=== PATIENT | male | born 1960 | race Caucasian/White ===

== ENCOUNTER 2017-03-28 23:49 | Inpatient (IN) | payer OTHER, MEDICAID ==
[~2017-03-28] VITALS: Ht 165.1 cm; Wt 102.0 kg
[2017-03-29] VITALS (7 sets, daily range): BP systolic 70–115; BP diastolic 37–73
[2017-03-29 00:45] LABS: ALBUMIN 1.5 g/dL (3.4-5.0); BILIRUBIN TOTAL 0.7 mg/dL (0.20-1.00); CALCIUM 7.9 mg/dL (8.5-10.1); CARBON DIOXIDE 13.1 mmol/L (21-32); POTASSIUM SERUM 4.3 mmol/L (3.5-5.1); TOTAL PROTEIN, SERUM 7.1 g/dL (6.4-8.2)
[2017-03-29 00:47] LABS: CREATININE SERUM 4.2 mg/dL (0.7-1.3)
[2017-03-29 00:48] LABS: PLATELET COUNT 121 x10^3mcL (130-400); RED CELL DISTRIBUTION WIDTH 15.7 % (11.5-14.5)
[2017-03-29 01:44] LABS: BAND NEUTROPHIL 19 % (0-10); METAMYELOCTE 8 % (0-2); MONOCYTE 8 % (0-7); PLATELET MORPHOLOGY LARGE PLATELET SEEN; SEGMENTED NEUTROPHILS 54 % (37-75); rbc morphology (normal/abnorm) ABNORMAL (NORMAL); tear drop cell (dacryocyte) 1+
[2017-03-29 01:54] LABS: UA SPECIFIC GRAVITY 1.025 (1.005-1.035); microscopic required? YES; urine erythrocyte 3+ (NEGATIVE)
[2017-03-29] MEDS ORDERED: ASPIR 8181 MG PO (07:34)
[2017-03-29] MEDS ORDERED: ALBUTEROL0.63 MG/3 IH (07:34)
[2017-03-29] MEDS ORDERED: LEVEMIR100 U/M1 SC (07:35)
[2017-03-29] MEDS ORDERED: LAC PO (07:36)
[2017-03-29] MEDS ORDERED: MULTI-VITAMINS1 TAB PO (07:36)
[2017-03-29] MEDS ORDERED: LACTULOSE10 GM/152 PO (07:36)
[2017-03-29] MEDS ORDERED: NEOMYCIN SULFA500 MG PO (07:37)
[2017-03-29] MEDS ORDERED: SENOKOT8.6 MG PO (07:37)
[2017-03-29] MEDS ORDERED: PROPRANOLOL HCL20 MG PO (07:38)
[2017-03-29 12:53] LABS: CALCIUM 7.7 mg/dL (8.5-10.1); CARBON DIOXIDE 12.5 mmol/L (21-32); POTASSIUM SERUM 4.1 mmol/L (3.5-5.1)
[2017-03-29 12:58] LABS: CREATININE SERUM 4.2 mg/dL (0.7-1.3)
[2017-03-29 19:53] LABS: CALCIUM 7.5 mg/dL (8.5-10.1); CARBON DIOXIDE 11.5 mmol/L (21-32); CREATININE SERUM 3.9 mg/dL (0.7-1.3); POTASSIUM SERUM 3.6 mmol/L (3.5-5.1)
[2017-03-30 03:42] VITALS: BP 83/54
[2017-03-30 06:06] LABS: PLATELET COUNT 57 x10^3mcL (130-400); RED CELL DISTRIBUTION WIDTH 15.9 % (11.5-14.5)
[2017-03-30 06:09] LABS: IRON 98 ug/dL (65-170)
[2017-03-30 06:11] LABS: TOTAL IRON BINDING CAPACITY 84 ug/dL (250-450)
[2017-03-30 06:19] LABS: ALBUMIN 1.1 g/dL (3.4-5.0); BILIRUBIN TOTAL 1.26 mg/dL (0.20-1.00); CALCIUM 7.6 mg/dL (8.5-10.1); CARBON DIOXIDE 12.9 mmol/L (21-32); CREATININE SERUM 3.6 mg/dL (0.7-1.3); PHOSPHOROUS 4.8 mg/dL (2.5-4.9); POTASSIUM SERUM 3.5 mmol/L (3.5-5.1); TOTAL PROTEIN, SERUM 5.3 g/dL (6.4-8.2)
[2017-03-30 06:21] LABS: BAND NEUTROPHIL 10 % (0-10); SEGMENTED NEUTROPHILS 75 % (37-75)
[2017-03-30 06:22] LABS: MONOCYTE 10 % (0-7); rbc morphology (normal/abnorm) ABNORMAL (NORMAL)
[2017-03-30 06:23] LABS: PLATELET MORPHOLOGY PLATELETS DECREASED
[2017-03-30 07:30] VITALS: BP 91/55
[2017-03-30 11:45] VITALS: BP 110/64
[2017-03-30 13:46] VITALS: Ht 165.1 cm; Wt 102.0 kg
[2017-03-30 16:00] VITALS: BP 107/62
[2017-03-30 19:50] VITALS: BP 106/53
[2017-03-30 23:20] VITALS: BP 118/63
[2017-03-31 03:26] VITALS: BP 97/53
[2017-03-31 05:02] LABS: PLATELET COUNT 58 x10^3mcL (130-400)
[2017-03-31 05:18] LABS: BILIRUBIN TOTAL 0.86 mg/dL (0.20-1.00); CALCIUM 7.8 mg/dL (8.5-10.1); CARBON DIOXIDE 13.6 mmol/L (21-32); CREATININE SERUM 3.4 mg/dL (0.7-1.3)
[2017-03-31 05:20] LABS: ALBUMIN 1.7 g/dL (3.4-5.0); TOTAL PROTEIN, SERUM 5.8 g/dL (6.4-8.2)
[2017-03-31 05:21] LABS: POTASSIUM SERUM 2.7 mmol/L (3.5-5.1)
[2017-03-31 05:29] LABS: BAND NEUTROPHIL 8 % (0-10); METAMYELOCTE 5 % (0-2); MONOCYTE 4 % (0-7); MYELOCYTE 1 % (0-2); SEGMENTED NEUTROPHILS 77 % (37-75); rbc morphology (normal/abnorm) ABNORMAL (NORMAL); tear drop cell (dacryocyte) 1+
[2017-03-31 05:30] LABS: burr cell (echinocyte) 1+
[2017-03-31 08:00] VITALS: BP 99/53
[2017-03-31 11:30] VITALS: BP 99/55
[2017-03-31 13:23] LABS: microalbumin:creatinine ratio 543.5 (0.0-30.0)
[2017-03-31 16:00] VITALS: BP 150/72
[2017-03-31 20:22] VITALS: BP 128/68
[2017-04-01 06:13] VITALS: BP 91/44
[2017-04-01 06:22] VITALS: BP 99/49
[2017-04-01 07:01] LABS: RED CELL DISTRIBUTION WIDTH 17.1 % (11.5-14.5)
[2017-04-01 07:03] LABS: CALCIUM 7.4 mg/dL (8.5-10.1); CARBON DIOXIDE 14.3 mmol/L (21-32); CREATININE SERUM 3.1 mg/dL (0.7-1.3); MAGNESIUM 1.5 mg/dL (1.8-2.4); PLATELET COUNT 39 x10^3mcL (130-400); POTASSIUM SERUM 3.3 mmol/L (3.5-5.1)
[2017-04-01 10:11] LABS: BAND NEUTROPHIL 9 % (0-10); BASOPHIL 0 % (0-2); METAMYELOCTE 4 % (0-2); MONOCYTE 6 % (0-7); MYELOCYTE 1 % (0-2); SEGMENTED NEUTROPHILS 72 % (37-75)
[2017-04-01 10:12] LABS: rbc morphology (normal/abnorm) ABNORMAL (NORMAL)
[2017-04-01 10:14] LABS: burr cell (echinocyte) 1+; tear drop cell (dacryocyte) 1+
[2017-04-01 10:19] VITALS: BP 102/47
[2017-04-01 14:31] VITALS: BP 110/50
[2017-04-01 17:48] VITALS: BP 118/56
[2017-04-01 20:54] VITALS: BP 119/48
[2017-04-02 05:30] VITALS: BP 119/59
[2017-04-02 06:11] LABS: BASOPHIL % 0.2 % (0-2)
[2017-04-02 06:24] LABS: CALCIUM 7.5 mg/dL (8.5-10.1); CARBON DIOXIDE 12.9 mmol/L (21-32); CREATININE SERUM 2.9 mg/dL (0.7-1.3); MAGNESIUM 2.3 mg/dL (1.8-2.4); PHOSPHOROUS 4.2 mg/dL (2.5-4.9); POTASSIUM SERUM 3.6 mmol/L (3.5-5.1)
[2017-04-02 06:38] LABS: RED CELL DISTRIBUTION WIDTH 16.9 % (11.5-14.5)
[2017-04-02 06:42] LABS: PLATELET COUNT 36 x10^3mcL (130-400)
[2017-04-02 09:27] VITALS: BP 106/55
[2017-04-02 14:51] VITALS: BP 134/59
[2017-04-02 17:36] VITALS: BP 119/51
[2017-04-02 21:15] VITALS: BP 123/58
[2017-04-03 05:45] VITALS: BP 100/66
[2017-04-03 07:10] LABS: CALCIUM 7.5 mg/dL (8.5-10.1); CARBON DIOXIDE 13.6 mmol/L (21-32); CREATININE SERUM 2.7 mg/dL (0.7-1.3); PHOSPHOROUS 4.4 mg/dL (2.5-4.9); POTASSIUM SERUM 3.4 mmol/L (3.5-5.1)
[2017-04-03 10:16] VITALS: BP 121/64
[2017-04-03 13:19] VITALS: BP 121/64
[2017-04-03 13:57] VITALS: BP 153/63
[2017-04-03 17:54] VITALS: BP 102/82
== END 2017-04-03 18:14 | DRG 871 ==
LOC: ED 23:49 → IC 03-29 01:53 → DU 03-29 01:53 → IC 03-29 19:44 → DU 03-31 19:27
PROVIDERS: Emergency Medicine; Internal Medicine; Internal Medicine Nephrology; Internal Medicine Pulmonary Disease; Urology; ADMIT Internal Medicine Pulmonary Disease
PROC: 0T9B80Z Drainage of Bladder with Drainage Device, Via Natural or Artificial Opening Endoscopic (ICD-10-PCS; principal; 2017-04-02 10:45)
DX: A41.9 Sepsis, unspecified organism (principal); L89.154 Pressure ulcer of sacral region, stage 4; N39.0 Urinary tract infection, site not specified; E87.1 Hypo-osmolality and hyponatremia; L97.411 Non-pressure chronic ulcer of right heel and midfoot limited to breakdown of skin; S37.33XA Laceration of urethra, initial encounter; N48.5 Ulcer of penis; N50.89 Other specified disorders of the male genital organs; N49.2 Inflammatory disorders of scrotum; M48.02 Spinal stenosis, cervical region; M19.90 Unspecified osteoarthritis, unspecified site; T83.098A Other mechanical complication of other urinary catheter, initial encounter; X58.XXXA Exposure to other specified factors, initial encounter; Y93.89 Activity, other specified; Y92.89 Other specified places as the place of occurrence of the external cause; K74.60 Unspecified cirrhosis of liver
CPT/HCPCS: 82962; 83880; J0696; J1450; J1650; J1815; J1940; J1956; J2001; J2250; J2405; J2543; J3010; J3370; J3475; J3480; J3490; J7030; J7040; P9016; P9047; Q0092; Q9958; Q9968

== ENCOUNTER 2017-04-12 15:07 | Inpatient (IN) | payer OTHER, MEDICAID ==
[~2017-04-12] VITALS: Ht 165.1 cm; Wt 94.3 kg
[~2017-04-12 15:07] MED LIST: ALBUTEROL0.63 MG/3 IH; ASPIR 8181 MG PO; LAC PO; LACTULOSE10 GM/152 PO; LEVEMIR100 U/M1 SC; MULTI-VITAMINS1 TAB PO; NEOMYCIN SULFA500 MG PO; PROPRANOLOL HCL20 MG PO; SENOKOT8.6 MG PO
[2017-04-12 15:59] LABS: UA SPECIFIC GRAVITY 1.025 (1.005-1.035); microscopic required? YES; urine erythrocyte 3+ (NEGATIVE)
[2017-04-12 16:05] LABS: CALCIUM 8.1 mg/dL (8.5-10.1); CARBON DIOXIDE 15.6 mmol/L (21-32); POTASSIUM SERUM 3.7 mmol/L (3.5-5.1)
[2017-04-12 16:06] LABS: BASOPHIL % 1.2 % (0-2)
[2017-04-12 16:12] LABS: ALBUMIN 1.5 g/dL (3.4-5.0); BILIRUBIN TOTAL 0.46 mg/dL (0.20-1.00); TOTAL PROTEIN, SERUM 6.8 g/dL (6.4-8.2)
[2017-04-12 16:41] LABS: rbc morphology (normal/abnorm) ABNORMAL (NORMAL)
[2017-04-12 16:43] LABS: PLATELET COUNT 93 x10^3mcL (130-400)
[2017-04-12] MEDS ORDERED: COLACE100 MG PO (17:21)
[2017-04-12 18:27] VITALS: BP 116/54
[2017-04-12 23:05] VITALS: BP 110/63
[2017-04-13] VITALS (8 sets, daily range): BP systolic 110–130; BP diastolic 53–63
[2017-04-13 06:13] LABS: CALCIUM 7.7 mg/dL (8.5-10.1); CARBON DIOXIDE 15.1 mmol/L (21-32); POTASSIUM SERUM 3.8 mmol/L (3.5-5.1)
[2017-04-13 07:44] LABS: BASOPHIL % 0 % (0-2); PLATELET COUNT 63 x10^3mcL (130-400)
[2017-04-13 10:46] LABS: rbc morphology (normal/abnorm) ABNORMAL (NORMAL)
[2017-04-13 10:47] LABS: ovalocyte/elliptocyte 1+; tear drop cell (dacryocyte) 1+
[2017-04-14 06:58] VITALS: BP 123/69
[2017-04-14 10:39] VITALS: BP 117/66
[2017-04-14 11:27] LABS: BASOPHIL % 1.5 % (0-2)
[2017-04-14 11:29] LABS: PLATELET COUNT 53 x10^3mcL (130-400); RED CELL DISTRIBUTION WIDTH 18.5 % (11.5-14.5)
[2017-04-14 11:35] LABS: CALCIUM 8.1 mg/dL (8.5-10.1); CREATININE SERUM 1.8 mg/dL (0.7-1.3); POTASSIUM SERUM 4.1 mmol/L (3.5-5.1)
[2017-04-14 12:58] VITALS: BP 114/63
[2017-04-14 16:57] VITALS: BP 137/70
[2017-04-14 21:52] VITALS: BP 108/53
[2017-04-15 05:18] VITALS: BP 115/55
[2017-04-15 06:44] LABS: BASOPHIL % 0.8 % (0-2)
[2017-04-15 06:52] LABS: RED CELL DISTRIBUTION WIDTH 19.3 % (11.5-14.5)
[2017-04-15 06:55] LABS: PLATELET COUNT 40 x10^3mcL (130-400)
[2017-04-15 06:58] LABS: CARBON DIOXIDE 14.6 mmol/L (21-32); CREATININE SERUM 1.6 mg/dL (0.7-1.3); POTASSIUM SERUM 3.9 mmol/L (3.5-5.1)
[2017-04-15 06:59] LABS: ovalocyte/elliptocyte 1+; rbc morphology (normal/abnorm) ABNORMAL (NORMAL); tear drop cell (dacryocyte) 1+
[2017-04-15 09:19] VITALS: BP 101/48
[2017-04-15 15:45] VITALS: BP 90/44
[2017-04-15 16:00] VITALS: BP 93/51
[2017-04-15 17:06] VITALS: BP 105/60
[2017-04-15 21:42] VITALS: BP 132/71
[2017-04-16 06:02] LABS: BASOPHIL % 1.2 % (0-2)
[2017-04-16 06:23] LABS: BILIRUBIN DIRECT 0.42 mg/dL (0.0-0.2); BILIRUBIN TOTAL 0.8 mg/dL (0.20-1.00); CARBON DIOXIDE 14.2 mmol/L (21-32); CREATININE SERUM 1.6 mg/dL (0.7-1.3); POTASSIUM SERUM 3.8 mmol/L (3.5-5.1); TOTAL PROTEIN, SERUM 6.2 g/dL (6.4-8.2)
[2017-04-16 06:28] VITALS: BP 144/75
[2017-04-16 06:37] LABS: ALBUMIN 1.5 g/dL (3.4-5.0)
[2017-04-16 06:48] LABS: PLATELET COUNT 39 x10^3mcL (130-400); RED CELL DISTRIBUTION WIDTH 17.8 % (11.5-14.5)
[2017-04-16 06:49] LABS: rbc morphology (normal/abnorm) ABNORMAL (NORMAL)
[2017-04-16 08:34] VITALS: BP 128/73
[2017-04-16 12:46] VITALS: BP 113/44
[2017-04-16 15:32] VITALS: BP 113/44
== END 2017-04-16 17:45 | DRG 356 ==
LOC: ED 15:07 → DU 16:37
PROVIDERS: Emergency Medicine; Internal Medicine; ADMIT Internal Medicine
PROC: 30233N1 Transfusion of Nonautologous Red Blood Cells into Peripheral Vein, Percutaneous Approach (ICD-10-PCS; 2017-04-13)
PROC: 0W3P8ZZ Control Bleeding in Gastrointestinal Tract, Via Natural or Artificial Opening Endoscopic (ICD-10-PCS; principal; 2017-04-14 09:00)
PROC: 0JB70ZZ Excision of Back Subcutaneous Tissue and Fascia, Open Approach (ICD-10-PCS; 2017-04-15)
PROC: 0JB90ZZ Excision of Buttock Subcutaneous Tissue and Fascia, Open Approach (ICD-10-PCS; 2017-04-15)
DX: K26.4 Chronic or unspecified duodenal ulcer with hemorrhage (principal); L89.154 Pressure ulcer of sacral region, stage 4; D62 Acute posthemorrhagic anemia; N17.9 Acute kidney failure, unspecified; N39.0 Urinary tract infection, site not specified; G82.20 Paraplegia, unspecified; K76.6 Portal hypertension; E86.0 Dehydration; K22.70 Barrett's esophagus without dysplasia; K31.89 Other diseases of stomach and duodenum; K74.60 Unspecified cirrhosis of liver; I10 Essential (primary) hypertension; E11.9 Type 2 diabetes mellitus without complications; N48.9 Disorder of penis, unspecified; Z86.73 Personal history of transient ischemic attack (TIA), and cerebral infarction without residual deficits
CPT/HCPCS: 43235; 82962; 83880; 94150; C9113; J0171; J0690; J0696; J1200; J1610; J2250; J2310; J2704; J3010; J3490; J7030; J7040; J7050; P9016; Q0092